=== PATIENT | female | born 2000 | race African-American/Black ===

== ENCOUNTER 2019-10-17 21:15 | Outpatient (CLI) | payer OTHER, SELFPAY ==
[~2019-10-17] VITALS: Ht 172.7 cm; Wt 69.2 kg
[2019-10-17] MEDS ORDERED: PRENTAB9 PO (22:11)
[2019-10-17] MEDS ORDERED: metroNIDAZOLE (FLAGYL) 500 MG TAB PO ONE (23:00)
--- NOTE | 2019-10-18 01:11 | IPNPDOC ---
Text Note Date of Service The patient was seen on 10/17/19. NOTE patient is a 19 yo G1 @33+6wks gestation presents with new onset contractions. Patient reports she has been having cramping throughout the day and has not been drinking water. Started feeling contractions about 20 minutes prior to arrival. Now without contractions. denies LOF/VB. +FM. last coitus night prior. vitals: normal NAD ABD: gravid, soft, nt, cephalic by deanna's speculum exam: frothy vaginal discharge, no lesion, cervix visually closed and long UA without e/o infection wet prep: +clue cells, neg trich tello: +whiff test, neg buds/hyphae fht: 135/mod garry/pos accel/no decel toco: quiet a/p patient @ 33+6wks not in labor. Patient with BV. not in labor. patient given flagyle 500mg x 1 in triage. Additional flagyl 500mg po placed at [facility] in am. 7 days treatment. return precautions given. f/u as scheduled. DO MELISSA Khalil LUAT N. DO Oct 17, 2019 23:08
== END 2019-10-17 23:25 | disposition home or self-care (01) ==
LOC: M LDO 21:15
PROVIDERS: ATTEND Obstetrics & Gynecology
DX: O26.893 Other specified pregnancy related conditions, third trimester (principal); Z3A.33 33 weeks gestation of pregnancy
CPT/HCPCS: 59025; G0378; G0463

== ENCOUNTER 2021-10-06 17:21 | Inpatient (IN) | payer OTHER, SELFPAY ==
[~2021-10-06] VITALS: Ht 172.7 cm; Wt 69.5 kg
[~2021-10-06 17:21] MED LIST: PRENTAB9 PO
[2021-10-06 18:25] LABS: HEMATOCRIT 37.2 % (36.0-47.0); HEMOGLOBIN 12.6 g/dl (12.0-15.5); MEAN CORPUSCULAR HEMOGLOBIN 28.1 pg (27.0-33.0); MEAN CORPUSCULAR HGB CONC 33.9 g/dl (32.0-36.5); PLATELET COUNT, AUTOMATED 231 10^3/uL (150-450); RED BLOOD COUNT 4.48 10^6/uL (4.00-5.40); WHITE BLOOD COUNT 8.5 10^3/uL (4.0-10.0)
[2021-10-06] MEDS ORDERED: HOME MED LIST COMPLETE! XX SCH (18:35)
[2021-10-06 18:56] LABS: HCG, SERUM QUALITATIVE POSITIVE (NEGATIVE)
[2021-10-06 19:06] LABS: ACETAMINOPHEN LEVEL < 2.0 UG/ML (10.0-30.0); ALT/SGPT 12 U/L (12-78); BILIRUBIN,DIRECT 0.2 MG/DL (0.0-0.2); BILIRUBIN,TOTAL 0.9 MG/DL (0.2-1.0); BLOOD UREA NITROGEN 6 MG/DL (7-18); CALCIUM LEVEL 9.5 MG/DL (8.5-10.1); CARBON DIOXIDE LEVEL 22 MEQ/L (21-32); CHLORIDE LEVEL 104 MEQ/L (98-107); CREATININE FOR GFR 0.62 MG/DL (0.55-1.30); ETHYL ALCOHOL (ETHANOL) < 0.003 % (0.000-0.010); GLOMERULAR FILTRATION RATE > 60.0 (>60); GLUCOSE, FASTING 87 MG/DL (70-100); POTASSIUM SERUM 3.6 MEQ/L (3.5-5.1); SALICYLATE LEVEL < 1.7 MG/DL (5.0-30.0); SODIUM LEVEL 136 MEQ/L (136-145); TOTAL PROTEIN 7.6 GM/DL (6.4-8.2)
[2021-10-06 20:11] LABS: AMPHETAMINES LEVEL URINE NEGATIVE (NEGATIVE); BARBITURATES URINE NEGATIVE (NEGATIVE); BENZODIAZEPINES URINE NEGATIVE (NEGATIVE); CANNABINOIDS URINE POSITIVE (NEGATIVE); COCAINE METABOLITE URINE NEGATIVE (NEGATIVE); METHADONE URINE NEGATIVE (NEGATIVE); OPIATES URINE NEGATIVE (NEGATIVE); PHENCYCLIDINE URINE NEGATIVE (NEGATIVE)
--- OUTSIDE RECORDS SUMMARY | 2021-10-06 22:33 | CCD ---
Author Author [facility] Address Unknown Phone Unavailable Support Name Relationship Address Phone UE Next Of Kin Unknown Unavailable CHARLOTTE MYERS Next Of Kin [id number] [place] [address] Re-disclosure Warning The records that you are about to access may contain information from federally-assisted alcohol or drug abuse programs. If such information is present, then the following federally mandated warning applies: This information has been disclosed to you from records protected by federal confidentiality rules (42 CFR part 2). The federal rules prohibit you from making any further disclosure of this information unless further disclosure is expressly permitted by the written consent of the person to whom it pertains or as otherwise permitted by 42 CFR part 2. A general authorization for the release of medical or other information is NOT sufficient for this purpose. The Federal rules restrict any use of the information to criminally investigate or prosecute any alcohol or drug abuse patient.The records that you are about to access may contain highly sensitive health information, the redisclosure of which is protected by Article 27-F of the [facility] Public Health law. If you continue you may have access to information: Regarding HIV / AIDS; Provided by facilities licensed or operated by the [facility] Office of Mental Health; or Provided by the [facility] Office for People With Developmental Disabilities. If such information is present, then the following [facility] mandated warning applies: This information has been disclosed to you from confidential records which are protected by state law. State law prohibits you from making any further disclosure of this information without the specific written consent of the person to whom it pertains, or as otherwise permitted by law. Any unauthorized further disclosure in violation of state law may result in a fine or detention sentence or both. A general authorization for the release of medical or other information is NOT sufficient authorization for further disc losure. Medications No Information Insurance Providers Payer name Policy type / Coverage type Policy ID Covered green party ID Covered green party's relationship to pedroza Policy Pedroza Plan Information [facility] [id number] SELF PAY ONLY SP ACTIVE DUTY Problems, Conditions, and Diagnoses No Information Surgeries/Procedures No Information Results No Information Social History No Information
[2021-10-07 09:44] LABS: RSV AMPLIFICATION NEGATIVE (NEGATIVE)
[2021-10-07 10:43] LABS: HCG, SERUM QUANTITATIVE 31450 MIU/ML
[2021-10-07] MEDS ORDERED: MAALOX 30 ML SUSP *UDC PO PRN (13:30)
[2021-10-07] MEDS ORDERED: ACETAMINOPHEN TAB 650MG DOSE (2X325MG) PO PRN (13:30)
[2021-10-07] MEDS ORDERED: MOM 30ML SUSPENSION UDC PO PRN (13:30)
[2021-10-07] MEDS ORDERED: traZODone 50 MG TAB PO PRN (13:30)
--- OUTSIDE RECORDS SUMMARY | 2021-10-07 13:50 | CCD ---
Author Author [facility] Address Unknown Phone Unavailable Support Name Relationship Address Phone UE Next Of Kin Unknown Unavailable CHARLOTTE MYERS Next Of Kin [id number] [place] [address] Re-disclosure Warning The records that [...] is protected by Article 27-F of the [facility] Public Health law. If you continue you may have access to information: Regarding HIV / AIDS; Provided by facilities licensed or operated by the [facility] Office of Mental Health; or Provided by the [facility] Office for People With Developmental Disabilities. If such information is present, then the following [facility] mandated warning applies: This information has [...] law may result in a fine or longterm sentence or both. A general authorization for the release of medical or other information is NOT sufficient authorization for further disc losure. Medications No Information Insurance Providers Payer name Policy type / Coverage type Policy ID Covered libertarian ID Covered libertarian's relationship to pedroza Policy Pedroza Plan Information [facility] [id number] SELF PAY ONLY SP ACTIVE DUTY Problems, Conditions, and Diagnoses No Information Surgeries/Procedures No Information Results No Information Social History No Information
[2021-10-07 17:00] VITALS: BP 119/56
[2021-10-08 06:12] VITALS: BP 115/58
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
[2021-10-08] MEDS: SERTRALINE HCL 25 MG TABLET PO SCH (13:23)
[2021-10-08 16:27] VITALS: BP 100/62
--- NOTE | 2021-10-08 17:04 | HPEPDOC ---
[facility] Medical History & Physical Date of Admission Oct 07, 2021 Date of Service: Oct 08, 2021 Other Provider Mitesh Solo MD psychiatry, Attending Physician: NAI PERZE DO History and Physical CHIEF COMPLAINT: A lot of stress HISTORY OF PRESENT ILLNESS: Patient is a 21-year-old female who presented to the emergency department after she was very anxious and what she stated was a con text of a mental breakdown. Patient states that she is not having a suicidal statement to psychiatry. Patient did not say very much to me during questioning but stated that this was "a waste of time". Patient is apparently having marital problems and recently just found out that she was which is putting a lot of stress on the patient patient states her last menstrual period was around the end of July but is unsure. Patient does not have any other complaints at this time. PAST MEDICAL HISTORY: Denies any past medical history PAST SURGICAL HISTORY: Denies any past surgical history SOCIAL HISTORY: Denies smoking cigarettes, drinking alcohol or doing illicit drugs at this time. Patient apparently was using marijuana up until is when she found out that she was FAMILY HISTORY: Patient denies any medical conditions such as hypertension or diabetes running i n her family ALLERGIES: Please see below. REVIEW OF SYSTEMS: General: Patient denies fevers HEENT: Patient denies headaches Cardiovascular: Patient denies chest pain Respiratory: Patient denies shortness of breath, cough GI: Patient denies abdominal pain, nausea, vomiting, diarrhea : Patient denies increased frequency or pain with urination Extremities: Patient denies swelling or pain in extremities Neurological: Patient denies numbness or tingling in legs Skin: Patient denies any new rashes or lesions. Hematologic: Patient denies any easy bruising. Lymphatic: Patient denies any lumps lumps or bumps in neck, axilla, or groin HOME MEDICATIONS: Please see below. PHYSICAL EXAMINATION: VITAL SIGNS: Temperature 97.8, pulse 100, respiratory rate 18, blood pressure 100/62, pulse oximetry 100% on room air. General: Alert and oriented female patient was laying in her room when I walked in. Patient of the walk into the examination room without any difficulty. Patient did not appear to be in any acute distress. Female nurse was present throughout the examination and history. HEENT: Normocephalic, atraumatic, moist mucous membranes. Neck: No lymphadenopathy or thyromegaly Cardiac: Regular rate and rhythm, no murmurs, normal S1, normal S2 Pulm: Clear to auscultation bilaterally. No wheezes, rhonchi, rales Abd: Nondistended, nontender to palpation, normal bowel sounds Ext: No edema bilateral lower extremities Neuro: Patient was able to move all 4 extremities on command and reported equal sensation light touch in all 4 extremities. Skin: Skin of the head, neck, upper and lower extremities was examined did not show any evidence of rash or wounds. LABORATORY DATA: See below. IMAGING: No imaging has been performed MICROBIOLOGY: Please see below. ASSESSMENT: 21-year-old female presented to the emergency department for a lot of stress who was admitted into the inpatient mental health unit. . PLAN: 1. Depression. Patient is undergoing a lot of life stresses due to recently finding out that she is . Discharge can be per [facility]. 2. . According to the hCG quantitative that was ordered, patient is most likely around 6 to 8 weeks . This lines up with the patient's last menstrual period being sometime in the end of July but she is unsure. Francisco stapleton will need to follow-up with obstetrics to establish with obstetric care once the patient is discharged from [facility]. If the patient begins to experience complications such as abdominal pain, vaginal bleeding, or discharge, please reconsult hospitalist. Disposition: Patient to be discharged per psychiatry. Please reconsult hospitalist if the need arises. Thank you for this consult. Vital Signs Vital Signs Date Time Temp Pulse Resp B/P (MAP) Pulse Ox O2 Delivery O2 Flow Rate FiO2 10/08/21 16:27 97.8 100 18 100/62 (75) 100 Room Air Home Medications No Active Prescriptions or Reported Meds Allergies Coded Allergies: No Known Allergies (Unverified , 10/17/19) A-FIB/CHADSVASC A-FIB History Current/History of A-Fib/PAF?: No Age/Risk Factor Scoring CHADSVASC: CHADSVASC Response (Comments) Value Age Risk Factor Age < 65 years old 0 Gender Risk Factor Female 1 Hx of CHF No 0 Hx of HTN No 0 Hx of Stroke/TIA/or VTE No 0 Hx of Diabetes No 0 Hx of Vascular Disease No 0 Total 1 NAI PEREZ DO Oct 08, 2021 17:04
[2021-10-09 06:38] VITALS: BP 122/78
[2021-10-09] MEDS: SERTRALINE HCL 25 MG TABLET PO SCH (08:16)
[2021-10-09] MEDS ORDERED: PRENATAL VITAMINS CHEWABLE TABLET PO SCH (09:00)
[2021-10-09] MEDS ORDERED: PRENCHW PO (10:59)
[2021-10-09] MEDS ORDERED: SERT25TA21 PO (10:59)
--- NOTE | 2021-10-09 12:49 | MHDSPDOC ---
[facility] Discharge Summary Discharge Summary DATE OF ADMISSION: Oct 07, 2021 at 13:29 DATE OF DISCHARGE: October 09, 2021 Discharge diagnoses: Unspecified trauma and stressor related disorder Unspecified anxiety disorder Peripartum depression PMDD Cannabis use Reason for admission:Patient is a 21 -year-old , [place], [place] [id number], no past psychiatric history, who was brought to the hospital on by [place] police, after expressed anxious statement in context of mental breakdown while on phone with mother, stated "can't do this anymore". Reports this was not a suicidal statement, rather her venting anxiety. States she does not have any suicidal thoughts, intent or plan. Denies ever engle ving suicidal thoughts. States she just found out was a week ago, "It's stressful, it's me my son and , I have no family or friends here, called my mom just to talk and get things off my chest". States since was little "I have a bad temper and anger issues, now I just try to stay busy, I can't let my myself look sad in front of son aged 1". I'll get stressed and get into a mood and it turns into depression, I just can't get out of that mood". Feels depression is getting worse, but states she just needs a therapist. Reports also having stressor of possibly having infidelities. States it would be hard to have another child now, but states she thinks it will get exciting as the progresses, reports states he doesn't want another child and she is afraid she will be alone caring for 2 children. Has a history of PMDD symptoms reported and post depression symptoms. Vital signs: See below Consultants involved: See medical H&P by hospitalist Treatment and progress on the unit: Patient was admitted to the [facility] on a legal status and was afforded the following treatment modalities: 1. Individual therapy 2. Group therapy 3. Medication management 4. Milieu therapy 5. Safe environment Hospital course: Patient was admitted to the [facility] on a legal status. Was medically cleared prior to coming up to the [facility]. Patient was started on sertraline 25 mg p.o. daily for depression, discussed common rare side effects for herself and possible risk to developing fetus. Reviewed common and the rare side effects of medications including sertraline, made aware of risk for SI, serotonin syndrome which is rare, GI side effects, weight changes, insomnia, teratogenic risks, reviewed website "mother to baby", made aware of risk for missed possible miscarriage, pulmonary effects, cardiotoxicity risk, . Patient agreed to start the medication after being made aware of risks, alternatives, benefits. Patient found medications beneficial and tolerated them well. Patient was made aware to follow-up with her [employer] for further discussion of medication, benefits and risk of taking medication throughout stages of and with breast-feeding. Patient reports that she had previously used alcohol, cannabis but when she found out she was she stopped using any drugs wanting to harm the fetus. Her to discuss her historical substance use with outside providers, including [facility]. Denies mood anxiety and intrusive thoughts which improved with treatment. Patient symptoms improved with treatment. On day of discharge patient denied depression, anxiety, insomnia, suicidal or homicidal ideations intent or plan, hallucinations, delusions. Patient was discharged home with follow-up. Patient felt safe for discharge. Was offered continued stay involuntary admission but refused. Discharge assessment: On today's interview patient is alert and oriented, dressed appropriately. Hygiene and grooming is well-kept. Smiles on approach and is pleasant and engaged on interview. Denies depression and anxiety. Denies suicidal homicidal ideation, intent or planning. Denies and is not observed with bijan or psychotic symptoms of delusions, hallucinations, bizarre thinking, obsessions, paranoia, ruminations, illogical thoughts, flight of ideas or having poor insight or judgment. Patient has normal mentation, declines further hospitalization of voluntary status and meets criteria for discharge today, patient encouraged to return the hospital if symptoms worsen or change and encouraged to call unit if they feel they need provider's questions to be answered or help with medications or care. Mental status: General Appearance: 21-year-old -[place] woman, well groomed, hospital scubs/clothing, good eye contact Build: average Demeanor: Calm, pleasant Eye Contact: avoidant Activity: anxious Behavior: cooperative Speech: clear Mood: "better" Affect: full, smiles, appropriate Thought Process: logical/linear Thought Content (Delusions): none reported Thought Content (Other): Denies suicidal ideations, intent or plan. Denies homicidal ideations, intent or plan. Thought Content (Aggressive): none reported Perception (Hallucinations): none reported Perception (Other): none reported Cognition (Impairment of): none reported Cognition(Intelligence Est.): average Oriented: Awake, Alert, Oriented times four Insight: good Judgment: good Psychosis: Denies Medications on discharge: see medication reconciliation: CSSRS on discharge: Wish to be : No nonspecific active suicidal thoughts: No lifetime attempts: 0 interrupted attempts: 0 aborted attempts: 0 preparatory acts or behavior: None Taking into consideration safety state, status, safety plan, protective factors, modifiable, non-modifiable risk factors patient is at low risk on discharge for suicide according to [facility] suicide evaluation. PLAN/FOLLOWUP ARRANGEMENTS: Follow Up Care Education Label * Mental Health Appt 1 * Mental Health [facility] * Established With This Provider No new patient * Therapist KRYSTA Valenzuela * Date Oct 16, 2021 * Time 08:30 * Address of Clinic or Practice [address] [place] [address] * Follow Up Care Education Label * Medical * Medical Follow Up [facility] * Established With This Provider Yes * Therapist DR. GAMBLE * Date Oct 17, 2021 * Time 09:20 * Address of Clinic or Practice [facility]/ [facility] * The amount of time spent in the coordination of care for this patient was approximately 35 minutes. ETOH/Disorder Med Rx ETOH/DRUG DISORDER RX: Offrd @ d/c & pt refused Vital Signs/I&Os Vital Signs Date Time Temp Pulse Resp B/P (MAP) Pulse Ox O2 Delivery O2 Flow Rate FiO2 10/09/21 08:59 Room Air 10/09/21 06:38 98.9 75 16 122/78 (93) 96 Medications Scheduled Pnv No.118/Iron Fumarate/FA ( 19 Chewable Tablet) 1 Each Tab.chew, 1 TAB PO DAILY for vitamin, #7 Sertraline HCl (Sertraline HCl) 25 Mg Tablet, 25 MG PO DAILY for depression, #7 Allergies Coded Allergies: No Known Allergies (Unverified , 10/17/19) MYRON MAJANO MD Oct 09, 2021 12:49
== END 2021-10-09 12:01 | disposition home or self-care (01) | DRG 833 ==
LOC: M ED 17:21 → M ED INP 10-07 13:29 → M PSY 10-07 14:30
PROVIDERS: ADMIT Student in an Organized Health Care Education/Training Program; ATTEND Student in an Organized Health Care Education/Training Program
DX: O99.341 Other mental disorders complicating pregnancy, first trimester (principal); F41.9 Anxiety disorder, unspecified; F43.9 Reaction to severe stress, unspecified; Z63.0 Problems in relationship with spouse or partner; Z3A.01 Less than 8 weeks gestation of pregnancy